=== PATIENT | female | born 1960 | race Two or more races ===

== ENCOUNTER → 2024-01-26 | Outpatient (CLI) | payer OTHER, MEDICAID ==
[~2024-01-26] VITALS: Ht 167.6 cm; Wt 59.4 kg
[~2024-01-26] MED LIST: ADENOSINE 50 MG in GIVE UN-DILUTED 0 ML IV STA
== END | disposition home or self-care (01) ==
LOC: XYW 06:52
PROVIDERS: ATTEND Student in an Organized Health Care Education/Training Program
DX: Z01.810 Encounter for preprocedural cardiovascular examination (principal); I71.21 Aneurysm of the ascending aorta, without rupture; M81.0 Age-related osteoporosis without current pathological fracture
CPT/HCPCS: 78452; 93017; A9500; J0153

== ENCOUNTER → 2024-02-16 | Outpatient (CLI) | payer OTHER, MEDICAID | END | disposition home or self-care (01) | LOC: LAB 07:38 | PROVIDERS: ATTEND Student in an Organized Health Care Education/Training Program | DX: Z01.810 Encounter for preprocedural cardiovascular examination (principal); I71.21 Aneurysm of the ascending aorta, without rupture | CPT/HCPCS: 36415; 82565; 84520 ==